=== PATIENT | male | born 1940 | race Caucasian/White ===

== ENCOUNTER → 2016-07-26 | Outpatient (CLI) | payer OTHER, MEDICARE | LOC: CIMAGING 15:26 | PROVIDERS: ATTEND Podiatrist | DX: S92.354A Nondisplaced fracture of fifth metatarsal bone, right foot, initial encounter for closed fracture (principal); X58.XXXA Exposure to other specified factors, initial encounter | CPT/HCPCS: 73610-PO; 73630-PO ==

== ENCOUNTER → 2016-08-31 | Outpatient (CLI) | payer OTHER, MEDICARE | LOC: CIMAGING 14:57 | PROVIDERS: ATTEND Podiatrist | DX: S92.354D Nondisplaced fracture of fifth metatarsal bone, right foot, subsequent encounter for fracture with routine healing (principal); S82.401D Unspecified fracture of shaft of right fibula, subsequent encounter for closed fracture with routine healing | CPT/HCPCS: 73600-PO; 73630-PO ==

== ENCOUNTER → 2016-10-12 | Outpatient (CLI) | payer OTHER, MEDICARE | LOC: CIMAGING 14:03 | PROVIDERS: ATTEND Podiatrist | DX: S92.351G Displaced fracture of fifth metatarsal bone, right foot, subsequent encounter for fracture with delayed healing (principal) | CPT/HCPCS: 73630-PO ==

== ENCOUNTER 2018-10-07 10:40 | Emergency (ER) | payer OTHER, MEDICARE | END 2018-10-07 13:21 | disposition home or self-care (01) | LOC: CED 10:40 ==